=== PATIENT | male | born 1955 | race American Indian/Alaskan Native ===

== ENCOUNTER 2022-01-14 10:02 | Day surgery (SDC) | payer MEDICARE, MEDICAID ==
[2022-01-14] MEDS ORDERED: LACTATED RINGERS 1,000 ML ONE (10:21)
--- NOTE | 2022-01-14 11:05 | Anesthesia Day of Surgery ---
Anesthesia Day of Surgery - Day of Surgery Patient Examined: Yes Patient H&P Reviewed: Yes Patient is NPO: Yes
--- NOTE | 2022-01-14 11:06 | Anesthesia Consultation ---
Anesthesia Consult and Med Hx Date of service: 01/14/22 - Airway Anesthetic Teeth Evaluation: Poor (Many missing) ROM Head & Neck: Adequate Mental/Hyoid Distance: Adequate Mallampati Class: Class II Intubation Access Assessment: Good - Pre-Operative Health Status ASA Pre-Surgery Classification: ASA2 Proposed Anesthetic Plan: General - Pulmonary Hx Smoking: Yes (SMOKES 1 PACK CIGS EVERY OTHER DAY) Home Oxygen Therapy: No (With COVID) Hx Pneumonia: Yes (09/10 ) Hx Sleep Apnea: No - Cardiovascular System Hx Hypertension: Yes - Central Nervous System Hx Psychiatric Problems: Yes (MILDLY RETARDED/Depression/Anxiety/Bipolar) - Hematic Hx Anemia: No Hx Sickle Cell Disease: No - Other Systems Hx Alcohol Use: Yes (OCCASIONALLY) Hx Substance Use: No Hx Cancer: No Hx Obesity: No
[2022-01-14] MEDS ORDERED: LACTATED RINGERS 1,000 ML IV SCH (11:30)
[2022-01-14] MEDS ORDERED: HYDROmorphone 1 MG/1 ML INJ IV PRN ×2 (11:30)
[2022-01-14] MEDS ORDERED: ONDANSETRON 4 MG/2 ML INJ IV PRN (11:30)
[2022-01-14] MEDS ORDERED: propofoL 200 MG/20 ML VIAL IV ONE (12:42)
[2022-01-14] MEDS ORDERED: HYDROmorphone 1 MG/1 ML INJ ONE (12:42)
[2022-01-14] MEDS ORDERED: LIDOCAINE MPF (2%) 20 MG/1 ML VIAL 5 ML ONE (12:42)
[2022-01-14] MEDS ORDERED: ceFAZolin/Water 2 GM/20 ML 2 GM/20 ML SYRINGE IV ONE (13:01)
[2022-01-14] MEDS ORDERED: HEPARIN 5,000 UNIT/1 ML VIAL ONE (13:02)
[2022-01-14] MEDS ORDERED: LIDOCAINE 2%/EPINEPHRINE 1:200,000 VIAL (20 ML) INFILTRATI ONE (13:12)
[2022-01-14] MEDS ORDERED: HEPARIN 5,000 UNIT/1 ML VIAL SUB-Q NR (13:15)
[2022-01-14] MEDS ORDERED: MINERAL OIL/PETROLATUM, WHITE OPHTH OINT 3.5 GM ONE (13:24)
[2022-01-14] MEDS ORDERED: PHENYLEPHRINE/NS 1,000 MCG/10 ML SYRINGE (OR USE) IV ONE (13:33)
[2022-01-14] MEDS ORDERED: LIDOCAINE 2%/EPINEPHRINE 1:100,000 VIAL (20 ML) INFILTRATI ONE ×2 (13:44)
[2022-01-14] MEDS ORDERED: SODIUM CHLORIDE 0.9% IRR 1,500 ML BOTTLE IR ONE (13:45)
[2022-01-14] MEDS ORDERED: ceFAZolin/STERILE WATER 2 GM/20 ML SYRINGE IV NR (14:00)
[2022-01-14] MEDS ORDERED: ONDANSETRON 4 MG/2 ML INJ ONE (14:14)
--- NOTE | 2022-01-14 14:19 | Procedure Note ---
Date of procedure: 01/14/22 Pre-op diagnosis: Right forehead mass, 4 cm Post-op diagnosis: same (Epidermoid cyst, 4 cm) Procedure: Excision of epidermoid cyst, right forehead, 4 cm Description of procedure: Pt was placed supine on the OR table. General anesthesia was administered. Right face and forehead was prepped and draped. The mass was excised with scalpel and Bovie dissection. The mass was found to be an EIC. Hemostasis was obtained with the Bovie. Wound was closed with deep dermal sutures of interrupted 4-0 Vicryl and a running 6-0 Nylon. Sterile gauze and Tegaderm were applied. Pt tolerated the procedure well and was taken to PACU in stable condition. Anesthesia: other (LMA) Surgeon: JOSE ONOFRE Estimated blood loss: minimal Pathology: list (Epidermoid cyst) Specimen disposition: to lab Condition: stable Disposition: PACU
[2022-01-14 15:19] VITALS: BP 131/71
--- NOTE | 2022-01-14 17:37 | Post Anesthesia Evaluation ---
- Post Anesthesia Evaluation Patient Participated: Yes Airway Patent: Yes Stable Respiratory Function: Yes Nausea/Vomiting: No Temp > 96.8F: Yes Pain Manageable: Yes Adequeate Hydration: Yes Anesthesia Complications: No Block Receding Appropriately: Not Applicable Patient on Ventilator: No
== END 2022-01-14 16:00 | disposition home or self-care (01) ==
LOC: OR 10:02
PROVIDERS: ATTEND Surgery
DX: R22.0 Localized swelling, mass and lump, head (principal); L72.0 Epidermal cyst; I10 Essential (primary) hypertension; F31.9 Bipolar disorder, unspecified; F41.9 Anxiety disorder, unspecified; F17.210 Nicotine dependence, cigarettes, uncomplicated; Z79.899 Other long term (current) drug therapy; Z87.01 Personal history of pneumonia (recurrent); Z20.822 Contact with and (suspected) exposure to COVID-19; Z72.89 Other problems related to lifestyle
CPT/HCPCS: 11444; 12052; 88304; J0690; J1170; J1644; J2370; J2405; J2704; J3490; J7120; U0003